=== PATIENT | female | born 1945 | race Caucasian/White ===

== ENCOUNTER 2017-12-12 15:35 | Outpatient (CLI) | payer OTHER ==
[~2017-12-12 15:35] MED LIST: ZANAFLEX2 M1 PO
== END 2017-12-12 15:39 | disposition home or self-care (01) ==
LOC: RAD 15:35
DX: M25.561 Pain in right knee (principal)

== ENCOUNTER 2019-01-29 14:10 | Outpatient (CLI) | payer OTHER | END 2019-01-29 14:13 | disposition home or self-care (01) | LOC: NUCLEAR 14:10 | DX: M81.0 Age-related osteoporosis without current pathological fracture (principal) ==

== ENCOUNTER → 2019-01-29 | Outpatient (CLI) | payer OTHER | END | disposition home or self-care (01) | LOC: MAMO-SONO 12:08 | DX: Z12.31 Encounter for screening mammogram for malignant neoplasm of breast (principal); Z87.898 Personal history of other specified conditions; N64.89 Other specified disorders of breast ==

== ENCOUNTER 2019-03-06 11:27 | Outpatient (CLI) | payer OTHER ==
[~2019-03-06 11:27] MED LIST changes: +VOLTAREN100 GM TOP
== END 2019-03-06 11:29 | disposition home or self-care (01) ==
LOC: RAD 11:27
DX: M25.562 Pain in left knee (principal); M17.12 Unilateral primary osteoarthritis, left knee

== ENCOUNTER 2019-05-08 13:02 | Outpatient (CLI) | payer OTHER | END 2019-05-08 15:49 | disposition home or self-care (01) | LOC: RAD 13:02 | DX: M54.5 Low back pain (principal); M16.0 Bilateral primary osteoarthritis of hip ==

== ENCOUNTER 2019-08-26 12:42 | Emergency (ER) | payer OTHER ==
[~2019-08-26] VITALS: Ht 160 cm; Wt 56.7 kg
[~2019-08-26 12:42] MED LIST changes: +NAPROXEN SODIU550 MG PO; +SKELAXIN800 MG PO
[2019-08-26] MEDS ORDERED: ZETIA10 MG PO (13:18)
[2019-08-26] MEDS ORDERED: PLAVIX75 MG PO (13:18)
[2019-08-26] MEDS ORDERED: ATORVASTATIN CA20 MG PO (13:18)
[2019-08-26] MEDS ORDERED: BYSTOLIC5 MG PO (13:19)
== END 2019-08-26 15:14 | disposition home or self-care (01) ==
LOC: ER 12:42
DX: S80.01XA Contusion of right knee, initial encounter (principal); S60.212A Contusion of left wrist, initial encounter; S50.02XA Contusion of left elbow, initial encounter; M62.830 Muscle spasm of back; W18.39XA Other fall on same level, initial encounter; Y93.89 Activity, other specified; Y92.480 Sidewalk as the place of occurrence of the external cause; Y99.8 Other external cause status

== ENCOUNTER 2022-03-10 11:39 | Outpatient (CLI) | payer OTHER ==
[~2022-03-10 11:39] MED LIST changes: +ATORVASTATIN CA20 MG PO; +BYSTOLIC5 MG PO; +CYCLOBENZAPRINE5 MG PO; +DOLOGESIC 500-1 EACH PO; +PLAVIX75 MG PO; +ZETIA10 MG PO
== END 2022-03-10 11:43 | disposition home or self-care (01) ==
LOC: RAD 11:39
PROVIDERS: ATTEND Internal Medicine Pulmonary Disease
DX: R05.3 Chronic cough (principal); J31.0 Chronic rhinitis

== ENCOUNTER 2022-04-18 14:01 | Outpatient (CLI) | payer OTHER | END 2022-04-18 14:28 | disposition home or self-care (01) | LOC: MAMO-SONO 14:01 | PROVIDERS: ATTEND Obstetrics & Gynecology | DX: Z12.31 Encounter for screening mammogram for malignant neoplasm of breast (principal) ==

== ENCOUNTER 2022-07-19 11:03 | Outpatient (CLI) | payer OTHER ==
[~2022-07-19 11:03] MED LIST changes: +MOBIC7.5 MG PO
== END 2022-07-19 11:04 | disposition home or self-care (01) ==
LOC: RAD 11:03
PROVIDERS: ATTEND Physical Medicine & Rehabilitation
DX: M54.51 Vertebrogenic low back pain (principal); M53.3 Sacrococcygeal disorders, not elsewhere classified

== ENCOUNTER 2023-05-18 19:01 | Emergency (ER) | payer OTHER ==
[~2023-05-18] VITALS: Ht 157.5 cm; Wt 57.6 kg
[~2023-05-18 19:01] MED LIST changes: +DICLOFENAC POTA50 MG PO; +NABUMETONE500 MG PO
[2023-05-18] MEDS ORDERED: PLAVIX75 MG (20:17)
[2023-05-18] MEDS ORDERED: MIRALAX17 GM (20:18)
[2023-05-18] MEDS ORDERED: BYSTOLIC2.5 MG PO (20:18)
== END 2023-05-18 23:09 | disposition home or self-care (01) ==
LOC: ER 19:01
DX: S02.2XXA Fracture of nasal bones, initial encounter for closed fracture (principal); S00.11XA Contusion of right eyelid and periocular area, initial encounter; W18.39XA Other fall on same level, initial encounter; Y93.89 Activity, other specified; Y92.480 Sidewalk as the place of occurrence of the external cause; Z88.6 Allergy status to analgesic agent; I10 Essential (primary) hypertension

== ENCOUNTER → 2023-06-13 | Outpatient (CLI) | payer OTHER ==
[~2023-06-13] MED LIST changes: +BYSTOLIC2.5 MG PO; +MIRALAX17 GM; +PLAVIX75 MG
== END | disposition home or self-care (01) ==
LOC: RAD 11:47
PROVIDERS: ATTEND Physical Medicine & Rehabilitation
DX: M25.561 Pain in right knee (principal)

== ENCOUNTER 2024-03-30 12:47 | Emergency (ER) | payer OTHER ==
[~2024-03-30] VITALS: Ht 157.5 cm; Wt 64.4 kg
[2024-03-30] MEDS ORDERED: XOPENEX HFA15 GM IH (13:46)
[2024-03-30] MEDS ORDERED: DEXAMETHASONE SODIUM PHOSPHATE 4 MG/ML VIAL IV STA (14:55)
[2024-03-30] MEDS ORDERED: MECLIZINE HCL 25 MG TABLET PO STA (14:55)
[2024-03-30 15:35] LABS: HEMATOCRIT 41.7 % (36.0-45.00); HEMOGLOBIN 13.8 g/dL (12.0-15.00); MEAN CELL VOLUME 84.3 fL (80.00-100.00); MEAN CORPUSCULAR HGB CONC 33.2 g/dl (32.0-36.0); PLATELET COUNT 224 K/uL (150-450); RED BLOOD COUNT 4.94 M/uL (4.00-6.00); RED CELL DISTRIBUTION WIDTH 14.3 % (11.5-14.5)
[2024-03-30 16:04] LABS: CREATININE SERUM 0.62 mg/dL (0.55-1.02); GFR 93.59
[2024-03-30 16:16] LABS: CALCIUM 9.9 mg/dL (8.5-10.1); POTASSIUM 4.47 mEq/L (3.5-5.1)
== END 2024-03-30 19:27 | disposition home or self-care (01) ==
LOC: ER 12:48
PROVIDERS: General Practice
DX: R42 Dizziness and giddiness (principal); I10 Essential (primary) hypertension
CPT/HCPCS: 36415; 70450; 96365; 99284; J1100

== ENCOUNTER 2025-04-17 07:36 | Outpatient (CLI) | payer OTHER ==
[~2025-04-17 07:36] MED LIST changes: +ATORVASTATIN CA20 MG; +BYSTOLIC5 MG; +LOSARTAN POTASS25 MG; +ULTRACET PO; +XOPENEX HFA15 GM IH; +ZETIA10 MG
== END 2025-04-17 07:37 | disposition home or self-care (01) ==
LOC: NUCLEAR 07:36
DX: J98.4 Other disorders of lung (principal); R91.1 Solitary pulmonary nodule
CPT/HCPCS: 78815; A9552

== ENCOUNTER 2025-06-04 14:46 | Outpatient (CLI) | payer OTHER | END 2025-06-04 14:51 | disposition home or self-care (01) | LOC: SONOGRAMA 14:46 | PROVIDERS: ATTEND Pathology Anatomic Pathology | DX: D44.0 Neoplasm of uncertain behavior of thyroid gland (principal); D34 Benign neoplasm of thyroid gland; E04.1 Nontoxic single thyroid nodule ==

== ENCOUNTER 2025-07-27 13:35 | Outpatient (CLI) | payer OTHER | END 2025-07-27 13:38 | disposition home or self-care (01) | LOC: SONOGRAMA 13:35 | PROVIDERS: ATTEND Pathology Anatomic Pathology | DX: D44.0 Neoplasm of uncertain behavior of thyroid gland (principal); E04.1 Nontoxic single thyroid nodule ==